=== PATIENT | female | born 1995 | race Two or more races ===

== ENCOUNTER 2016-12-22 02:22 | Emergency (ER) | payer SELFPAY ==
[~2016-12-22] VITALS: Ht 165.1 cm; Wt 63.5 kg
[2016-12-22 04:22] VITALS: BP 120/68
== END 2016-12-22 03:17 | disposition home or self-care (01) ==
LOC: ER 02:25
DX: S09.90XA Unspecified injury of head, initial encounter (principal); R51 Headache; Y08.89XA Assault by other specified means, initial encounter; Y93.89 Activity, other specified; Y92.89 Other specified places as the place of occurrence of the external cause; Y99.8 Other external cause status
CPT/HCPCS: 70450; 99284; A4606; Z7610